=== PATIENT | female | born 1980 | race Caucasian/White ===

== ENCOUNTER → 2016-10-22 | Outpatient (CLI) | payer OTHER | LOC: M LAB 08:28 | PROVIDERS: ATTEND Obstetrics & Gynecology Reproductive Endocrinology | DX: Z32.00 Encounter for pregnancy test, result unknown (principal) ==

== ENCOUNTER → 2017-01-14 | Outpatient (CLI) | payer OTHER ==
[2017-01-14 09:05] LABS: HCG, SERUM QUANTITATIVE < 1.0 MIU/ML
--- NOTE | 2017-01-14 09:57 | REP ---
TRANSVAGINAL PELVIC ULTRASOUND FOLLICLE STUDY: Real-time sonographic evaluation of the pelvis is performed utilizing transvaginal technique. The uterus measures 7.8 x 3.4 x 5.1 cm. Endometrial thickness is 3 mm. Tiny amount of fluid is seen in the endometrial canal. Anterior fundal fibroid in the right measures 1.1 x 0.9 X 0.9 cm. Right ovary measures 2.2 x 2.1 x 2.4 cm. Complex cystic structure in the right ovary measures 1.1 x 1.2 with multiple subcentimeter follicles. The left ovary measures 2.7 x 1.8 x 2.1 cm with three subcentimeter follicles. Signed by Julio Cesar Crouch MD 01/14/2017 10:01 A
[2017-01-14 11:00] LABS: PROGESTERONE 2.7 NG/ML
[2017-01-14 11:01] LABS: ESTRADIOL 23.6 PG/ML; LUTEINIZING HORMONE 8.5 mIU/mL
[2017-01-14 11:02] LABS: FOLLICLE STIMULATING HORMONE 23.8 mIU/mL
== END ==
LOC: M LAB 07:57
PROVIDERS: ATTEND Obstetrics & Gynecology Reproductive Endocrinology
DX: E28.9 Ovarian dysfunction, unspecified (principal)

== ENCOUNTER → 2017-01-25 | Outpatient (CLI) | payer OTHER ==
--- NOTE | 2017-01-25 08:41 | REP ---
ENDOVAGINAL PROBE PELVIC ULTRASOUND: 01/25/2017. Comparison: 01/23/2017, 12/21/2016. Clinical history: Infertility. Findings: The anteverted uterus is again seen measuring 8.4 x 3.4 x 5 cm without acute finding. The endometrial echogenic stripe is homogeneous up to 8.8 mm. No fluid in the cul-de-sac. The right ovary is 2.2 x 1.9 x 1.9 cm. There are two follicles over a centimeter measuring 10.4 and 10.3 mm in greatest diameters. There are no other 10 follicles ranging from 2-9.4 mm. The left ovary is 3.1 x 2.1 x 2.6 cm. There is one follicle over a centimeter at 20.8 x 15 mm. There are 10 follicles ranging from 2.2-9.3 mm. There were no fluid collections adjacent to the ovaries. Impression: 1. Two follicles measuring over a centimeter size on the right and one follicle on the left measuring nearly 2.1 cm. There are approximately 10 subcentimeter follicles in each ovary. No free fluid. Uterus and endometrial stripe intact. Signed by Sean Calvillo MD 01/25/2017 05:26 P
[2017-01-25 10:37] LABS: PROGESTERONE 3.3 NG/ML
[2017-01-25 10:38] LABS: LUTEINIZING HORMONE 13.3 mIU/mL
[2017-01-25 10:52] LABS: ESTRADIOL 67.2 PG/ML
== END ==
LOC: M RAD 07:23
PROVIDERS: ATTEND Obstetrics & Gynecology Reproductive Endocrinology
DX: E28.9 Ovarian dysfunction, unspecified (principal)

== ENCOUNTER → 2017-03-05 | Outpatient (CLI) | payer OTHER ==
--- NOTE | 2017-03-05 07:10 | REP ---
Clinical: Follicular study . Technique: Crouch scale and color evaluation using transvaginal technique. Findings: Anteverted uterus measures 8.7 x 3.3 x 5.2 cm with few scattered Nabothian cysts and trace fluid in the endocervical canal. Endometrial complex excluding fluid measures 7.7 mm thickness. No free pelvic fluid or adnexal mass lesion. Right ovary measures 2.9 x 2.2 x 2.2 cm and includes six sub centimeter follicles up to 6 mm diameter. Left ovary measures 4.2 x 2.1 x 2.4 cm and includes single 24 mm follicle and five sub centimeter follicles up to 9 mm diameter. Impression: Primarily sub centimeter follicles as noted above. Signed by Christiano Best MD 03/05/2017 04:02 A
[2017-03-05 08:04] LABS: HCG, SERUM QUANTITATIVE < 1.0 MIU/ML
[2017-03-05 09:28] LABS: PROGESTERONE 2.2 NG/ML
[2017-03-05 09:29] LABS: ESTRADIOL 156.7 PG/ML; FOLLICLE STIMULATING HORMONE 5.3 mIU/mL; LUTEINIZING HORMONE 4.5 mIU/mL
== END ==
LOC: M RAD 06:17
PROVIDERS: ATTEND Obstetrics & Gynecology Reproductive Endocrinology
DX: N97.9 Female infertility, unspecified (principal); N83.01 Follicular cyst of right ovary; N83.02 Follicular cyst of left ovary

== ENCOUNTER → 2017-03-12 | Outpatient (CLI) | payer OTHER ==
[2017-03-12 10:06] LABS: LUTEINIZING HORMONE 3.2 mIU/mL
[2017-03-12 10:07] LABS: ESTRADIOL 79.6 PG/ML
== END ==
LOC: M LAB 08:53
PROVIDERS: ATTEND Obstetrics & Gynecology Reproductive Endocrinology
DX: E28.9 Ovarian dysfunction, unspecified (principal)

== ENCOUNTER → 2017-03-15 | Outpatient (CLI) | payer OTHER ==
[2017-03-15 10:48] LABS: PROGESTERONE 2.7 NG/ML
[2017-03-15 10:50] LABS: ESTRADIOL 205.6 PG/ML
[2017-03-20 14:21] LABS: ANTI MULLERIAN HORMONE 0.264 ng/mL (.)
== END ==
LOC: M RAD 07:53
DX: E28.9 Ovarian dysfunction, unspecified (principal)
CPT/HCPCS: 76830

== ENCOUNTER → 2017-03-19 | Outpatient (CLI) | payer OTHER ==
[2017-03-19 09:46] LABS: PROGESTERONE 2.4 NG/ML
[2017-03-19 09:46] LABS: ESTRADIOL 661.2 PG/ML; LUTEINIZING HORMONE 4.8 mIU/mL
== END ==
LOC: M RAD 07:47
DX: E28.9 Ovarian dysfunction, unspecified (principal)
CPT/HCPCS: 76830

== ENCOUNTER → 2017-03-21 | Outpatient (CLI) | payer OTHER ==
[2017-03-21 11:02] LABS: ESTRADIOL 1193.4 PG/ML; LUTEINIZING HORMONE 2.6 mIU/mL
[2017-03-21 11:02] LABS: PROGESTERONE 2.1 NG/ML
== END ==
LOC: M RAD 09:27
DX: E28.9 Ovarian dysfunction, unspecified (principal)
CPT/HCPCS: 76830

== ENCOUNTER → 2017-04-05 | Outpatient (CLI) | payer OTHER ==
[2017-04-05 09:06] LABS: HCG, SERUM QUANTITATIVE < 1.0 MIU/ML
[2017-04-05 09:18] LABS: ESTRADIOL 127.1 PG/ML; FOLLICLE STIMULATING HORMONE 1.9 mIU/mL; LUTEINIZING HORMONE 0.2 mIU/mL
[2017-04-05 09:18] LABS: PROGESTERONE 2.6 NG/ML
== END ==
LOC: M RAD 07:23
DX: E28.9 Ovarian dysfunction, unspecified (principal)
CPT/HCPCS: 76830

== ENCOUNTER → 2017-04-10 | Outpatient (CLI) | payer OTHER ==
[2017-04-10 10:47] LABS: PROGESTERONE 2.8 NG/ML
[2017-04-10 10:47] LABS: LUTEINIZING HORMONE 1.6 mIU/mL
[2017-04-10 10:48] LABS: ESTRADIOL 35.9 PG/ML
== END ==
LOC: M RAD 07:33
DX: N97.9 Female infertility, unspecified (principal)

== ENCOUNTER → 2017-04-12 | Outpatient (CLI) | payer OTHER ==
[2017-04-12 09:38] LABS: PROGESTERONE 2.5 NG/ML
[2017-04-12 09:39] LABS: ESTRADIOL 54.5 PG/ML; LUTEINIZING HORMONE 1.2 mIU/mL
== END ==
LOC: M LAB 08:00
DX: E28.9 Ovarian dysfunction, unspecified (principal)
CPT/HCPCS: 83002

== ENCOUNTER → 2017-04-12 | Outpatient (CLI) | payer OTHER | LOC: M RAD 07:21 | DX: E28.9 Ovarian dysfunction, unspecified (principal) | CPT/HCPCS: 76830 ==

== ENCOUNTER → 2017-04-15 | Outpatient (CLI) | payer OTHER ==
[2017-04-15 09:51] LABS: PROGESTERONE 2.4 NG/ML
[2017-04-15 09:51] LABS: ESTRADIOL 150.4 PG/ML; LUTEINIZING HORMONE 1.4 mIU/mL
== END ==
LOC: M RAD 07:21
DX: N97.9 Female infertility, unspecified (principal)

== ENCOUNTER → 2017-04-17 | Outpatient (CLI) | payer OTHER ==
[2017-04-17 10:02] LABS: PROGESTERONE 2.9 NG/ML
[2017-04-17 10:03] LABS: ESTRADIOL 315.8 PG/ML; LUTEINIZING HORMONE 2.5 mIU/mL
== END ==
LOC: M RAD 08:14
DX: N97.9 Female infertility, unspecified (principal)

== ENCOUNTER → 2017-04-19 | Outpatient (CLI) | payer OTHER ==
[2017-04-19 10:45] LABS: PROGESTERONE 2.7 NG/ML
[2017-04-19 10:49] LABS: LUTEINIZING HORMONE 1.1 mIU/mL
[2017-04-19 10:50] LABS: ESTRADIOL 404.1 PG/ML
== END ==
LOC: M RAD 07:42
DX: E28.9 Ovarian dysfunction, unspecified (principal)
CPT/HCPCS: 76830

== ENCOUNTER → 2017-05-06 | Outpatient (CLI) | payer OTHER ==
[2017-05-06 07:32] LABS: HCG, SERUM QUANTITATIVE < 1.0 MIU/ML
[2017-05-06 11:31] LABS: ESTRADIOL < 19.0 PG/ML; LUTEINIZING HORMONE 1.7 mIU/mL
[2017-05-06 11:32] LABS: FOLLICLE STIMULATING HORMONE 10.8 mIU/mL
[2017-05-06 11:37] LABS: PROGESTERONE 3.3 NG/ML
== END ==
LOC: M RAD 06:15
DX: E28.9 Ovarian dysfunction, unspecified (principal); Q51.2 Other doubling of uterus
CPT/HCPCS: 76830

== ENCOUNTER → 2017-06-03 | Outpatient (CLI) | payer OTHER ==
[2017-06-03 08:29] LABS: HCG, SERUM QUANTITATIVE < 1.0 MIU/ML
[2017-06-03 08:59] LABS: PROGESTERONE 2.2 NG/ML
[2017-06-03 09:00] LABS: ESTRADIOL 140.9 PG/ML; LUTEINIZING HORMONE 6.7 mIU/mL
[2017-06-03 09:01] LABS: FOLLICLE STIMULATING HORMONE 7.9 mIU/mL
== END ==
LOC: M RAD 07:08
DX: E28.9 Ovarian dysfunction, unspecified (principal)

== ENCOUNTER → 2017-06-10 | Outpatient (CLI) | payer OTHER ==
[2017-06-10 09:29] LABS: ESTRADIOL 99.4 PG/ML; LUTEINIZING HORMONE 2.8 mIU/mL
[2017-06-10 09:29] LABS: PROGESTERONE 2.3 NG/ML
== END ==
LOC: M RAD 07:23
DX: E28.9 Ovarian dysfunction, unspecified (principal)

== ENCOUNTER → 2017-06-12 | Outpatient (CLI) | payer OTHER ==
[2017-06-12 09:58] LABS: ESTRADIOL 205.6 PG/ML; LUTEINIZING HORMONE 1.2 mIU/mL
[2017-06-12 09:58] LABS: PROGESTERONE 1.7 NG/ML
== END ==
LOC: M RAD 07:21
DX: E28.9 Ovarian dysfunction, unspecified (principal)
CPT/HCPCS: 76830

== ENCOUNTER → 2017-06-17 | Outpatient (CLI) | payer OTHER ==
[2017-06-17 09:40] LABS: PROGESTERONE 2.4 NG/ML
== END ==
LOC: M RAD 06:49
DX: E28.9 Ovarian dysfunction, unspecified (principal)
CPT/HCPCS: 76830